=== PATIENT | female | born 1995 | race Caucasian/White ===

== ENCOUNTER 2018-07-29 11:09 | Emergency (ER) | payer OTHER ==
[2018-07-29] MEDS ORDERED: KETOROLAC TROMETHAMINE 60 MG/2 ML SDV IM ONE (12:14)
[2018-07-29] MEDS ORDERED: ACETAMINOPHEN 325 MG TABLET PO ONE (12:14)
--- NOTE | 2018-07-29 12:21 | ER Document Report ---
Addendum entered and electronically signed by TRISTIAN CARDOZO PA-C 07/29/18 13:23: Discharge - Discharge Clinical Impression: Neck pain, acute Condition: Good Disposition: HOME, SELF-CARE Additional Instructions: You were seen in the emergency department for acute neck pain. X-ray did not show any evidence of dislocation or pathologic fracture. This is all very reassuring and it is most likely acute muscle strain which is causing inflammation on the spinal nerve roots giving you these symptoms. We gave you a shot of Toradol here in the emergency department which will help with the inflammation. At about 8:00 tonight you can start taking Motrin 600 mg every 6 hours with food or milk to help with the inflammation. Please note, it will take 24 to 36 hours for the anti-inflammatory properties of Motrin to start working. You can take Tylenol 1000 mill grams every 6 hours as needed for pain. I have also given you a prescription for Flexeril which is a muscle relaxer. If you choose to take it this can help loosen up the muscles. If you start to develop difficulty breathing i.e. you feel the sensation that you are unable to breathe, you develop paralysis or acute numbness in your left arm, you develop u rinary retention, numbness in your sit bones, or you have any other concerning symptoms please immediately return to the emergency department. Please follow- up with your primary doctor in the next 48 to 72 hours if your symptoms do not improve. Forms: Return to Work Referrals: ZOEY GARCIA FNP-C [Primary Care Provider] - Follow up as needed Original Note: HPI - HPI Patient complains to provider of: neck pain Time Seen by Provider: 07/29/18 12:04 Pain Level: 5 Context: 22-year-old healthy female presents emergency department chief complaint of left-sided neck pain. She says she was getting out of bed this morning, was talking on the phone, was reaching up to stretch, lean back and turned all at the same time and felt a pop. She had immediate pain and she is favoring her left side by leaning that way. She has very limited range of motion and cannot turn past midline to the right, can only turn to about 60 degrees to the left, cannot touch chin to chest, and cannot look up very far. She states that she has a burning sensation that goes up her neck and down her back into her shoulder. She does not have any numbness or tingling in her left arm, does not have urinary retention, does not have any respiratory distress or hypoventilation, no bowel incontinence, no fevers, no saddle paresthesia. She did go to her primary care provider's office who said they could offer her an x- ray but if she needed something like an MRI they would not be able to provide that and recommend that she go to the emergency department. She did not want to take any chances so she came here. - REPRODUCTIVE Reproductive: DENIES: : Past Medical History - Social History Smoking Status: Never Smoker Family History: None Vertical Provider Document - CONSTITUTIONAL Notes: PHYSICAL EXAMINATION: Reviewed vital signs and charting by RN GENERAL: Alert, interacts well. No acute distress. HEAD: Normocephalic, atraumatic. EYES: Pupils equal, round, and reactive to light. Extraocular movements intact. NECK: Very limited range of motion. Cannot turn to the left past midline and very cautious with movements, she is self splinting with her head tilted to the left. Hard to delineate tenderness on palpation but she was complaining of tenderness when palpating midline, did not reproduce any radiculopathy. Supple. Trachea midline. LUNGS: Clear to auscultation bilaterally, no wheezes, rales, or rhonchi. No respiratory distress. HEART: Regular rate and rhythm. No murmur EXTREMITIES: Moves all 4 extremities spontaneously. No edema, No cyanosis. Strength 5/5 bilateral upper extremities, strength 5/5 with metal template maker PSYCH: Normal affect, normal mood. SKIN: Warm, dry, normal turgor. No rashes or lesions noted. - INFECTION CONTROL TRAVEL OUTSIDE OF THE [place] IN LAST 30 DAYS: No Course - Re-evaluation Re-evalutation: 07/29/18 12:18 Well-appearing. To delineate her tenderness to palpation so I ordered a x-ray of the C-spine to ensure there is no acute dislocation or anything abnormal. I have given her Toradol 30 mg IM 1 time with some dede crackers, Tylenol, and will place a Lidoderm patch. No red flags concerning for spinous injury. 07/29/18 13:20 X-ray of C-spine negative for any obvious dislocation or pathologic fracture. At this time there is no red flags and patient can follow-up with her primary doctor. She is stable for discharge. Strict return precautions given. Discharge - Discharge Clinical Impression: Neck pain, acute Condition: Good Disposition: HOME, SELF-CARE Additional Instructions: You were seen in the emergency department for acute neck pain. X-ray did not show any evidence of dislocation or pathologic fracture. This is all very reassuring and it is most likely acute muscle strain which is causing inflammation on the spinal nerve roots giving you these symptoms. We gave you a shot of Toradol here in the emergency department which will help with the inflammation. At about 8:00 tonight you can start taking Motrin 600 mg every 6 hours with food or milk to help with the inflammation. Please note, it will take 24 to 36 hours for the anti-inflammatory properties of Motrin to start working. You can take Tylenol 1000 mill grams every 6 hours as needed for pain. I have also given you a prescription for Flexeril which is a muscle relaxer. If you choose to take it this can help loosen up the muscles. If you start to develop difficulty breathing i.e. you feel the sensation that you are unable to breathe, you develop paralysis or acute numbness in your left arm, you develop urinary retention, numbness in your sit bones, or you have any other concerning symptoms please immediately return to the emergency department. Please follow- up with your primary doctor in the next 48 to 72 hours if your symptoms do not improve.
--- NOTE | 2018-07-29 13:03 | RADIOLOGY REPORT (SQ) ---
"EXAM DESCRIPTION: CERV SP 3 VIEW OR LESS COMPLETED DATE/TIME: 07/29/2018 12:50 pm REASON FOR STUDY: midline pain no trauma COMPARISON: None. NUMBER OF VIEWS: Three views. TECHNIQUE: AP, lateral and odontoid radiographic images acquired of the cervical spine. LIMITATIONS: None. FINDINGS: MINERALIZATION: Normal. ALIGNMENT: Anatomic. VERTEBRAE: Vertebral bodies of normal height. DISCS: No significant disc space narrowing. No large osteophytes. HARDWARE: None in the spine. SOFT TISSUES: No masses or calcifications. Lung apices clear. OTHER: No other significant finding. IMPRESSION: NO SIGNIFICANT RADIOGRAPHIC FINDING IN THE CERVICAL SPINE. TECHNICAL DOCUMENTATION: JOB ID: [id number] [employer] | [employer]- All Rights Reserved Reading location - IP/workstation name: [email or web address]"
[2018-07-29 13:29] VITALS: BP 140/88
== END 2018-07-29 13:29 | disposition home or self-care (01) ==
LOC: ER 11:09
DX: M54.2 Cervicalgia (principal)
CPT/HCPCS: 99283; 96372; 72040; J1885

== ENCOUNTER → 2020-03-04 | Outpatient (CLI) | payer OTHER ==
--- NOTE | 2020-03-04 09:45 | ER [facility] ASSESSMENT REPORT ---
Intake - In the Last 14 days Have you traveled outside [place]?: Yes --City/State: [place] Have you been in close contact with someone CONFIRMED: No Worked in Healthcare?: No - Symptoms Subjective Fever([place] feverish): No Chills: No Muscule Aches: Yes Runny Nose: Yes Sore Throat: Yes Cough (New or worsening chronic cough): Yes Shortness of breath: No Nausea or Vomiting: Yes Headache: Yes Abdominal Pain: No Diarrhea(3 or more loose stools in last 24 hours): No - Do you have any of the following Chronic lung disease: Asthma or emphysema or COPD: No Cystic Fibrosis: No Diabetes: No High Blood Pressure: No Cardiovascular Disease: No Chronic Kidney Disease: No Chronic Liver Disease: No Chronic blood disorder like Sickle Cell Disease: No Weak immune system due to disease or medication: No Neurologic condition that limits movement: No Developmental delay - Moderate to Severe: No Recent (within past 2 weeks) or current : No Morbid Obesity (>100 pounds over ideal weight): No - Objective Temperature: 98.3 F Pulse Rate: 77 Respiratory Rate: 18 Blood Pressure: 119/78 O2 Sat by Pulse Oximetry: 100 Objective: Given above, testing performed: If Testing Performed: Test Specimen Type Sent to General - General Information source: Patient Notes: Patient presents to the [facility] for screening for the coronavirus. Patient reports having body aches, runny nose sore throat cough with headache and nausea. Patient reports having the symptoms for the past day - Related Data Allergies/Adverse Reactions: No Known Allergies Allergy (Unverified 07/29/18 11:11) Past Medical History - General Information source: Patient - Social History Smoking Status: Never Smoker Family History: None - Medical History Medical History: Negative Renal/ Medical History: Denies: Hx Peritoneal Dialysis Surgical Hx: Negative Physical Exam - Notes Notes: The patient was evaluated during the global Covid 19 pandemic, and that diagnosis was suspected/considered upon their initial presentation. Their evaluation and testing was consistent with current guidelines for patients who present with complaints or symptoms that may be related to Covid 19. Full physical exam could not be performed due to covid 19 isolation protocols. Constitutional: Nontoxic appearance, no acute distress Eyes: Nonicteric, sclera clear ENT posterior pharynx clear without exudate: Cardiovascular: Heart rate and rhythm regular Respiratory: Breath sounds clear bilaterally nonlabored breathing, no use of accessory muscles, no tachypnea Gastrointestinal: Abdomen not distended Muculoskeletal: Moves all extremities well Skin: Normal color Neuro: Awake alert oriented, normal speech Psych: Normal mood and affect Diagnostic Results Laboratory Results: Patient presents with upper respiratory symptoms worrisome for possible Covid 19. Patient does not have emergency worrying symptoms such as difficulty breathing, shortness of breath, chest pain, pressure, confusion or cyanosis. Patient appears suitable for discharge as they are not of an advanced age, do not have any chronic medical conditions such as diabetes, CAD, immune deficiency, chronic lung disease or chronic kidney disease. Patient's vital signs are stable and patient is nontoxic in appearance. Good return precautions have been discussed with patient, patient verbalized understanding and is ag reeable with discharge plan of care at this time. Patient Education/Counseling Counseling/Education: Patient was provided with discharge information including: As a person under investigation for Covid 19, the [place] department of Health and Human Services, division of public health advises you to adhere to the following guidance until your test results are reported to you. If your test result is positive, you will receive additional information from your provider and your local health department at that time. Remain at home until you are cleared by the health provider or public health authorities. Keep a log of visitors to your home, notify any visitors to your home of your isolation status. If you plan to move to a new address or leave the county, notify the local health department in your County. Call your doctor or seek care if you have an urgent medical need. Before seeking medical care, call ahead to get instructions from the provider before arriving at the medical office clinic or hospital. Notify them that you are being tested for the virus that causes Covid 19 so that arrangements can be made, as necessary, to prevent transmission to others in the healthcare setting. Next, notify the local health department in your county. If a medical emergency arises and you need to call 911, inform the first responders that you are being tested for the virus that causes Covid 19. Next, notify the local health department in your county. [facility] Discharge - Discharge Clinical Impression: Encounter for screening for COVID-19 Condition: Stable Disposition: Home; Selfcare
[2020-03-04 09:46] VITALS: BP 119/78
[2020-03-04 10:50] LABS: A TYPE INFLUENZA AG NEGATIVE (NEGATIVE); B INFLUENZA AG NEGATIVE (NEGATIVE)
== END ==
LOC: RDC 09:18
PROVIDERS: ATTEND Nurse Practitioner Family
DX: Z20.822 Contact with and (suspected) exposure to COVID-19 (principal); R05 Cough; J02.9 Acute pharyngitis, unspecified; R09.89 Other specified symptoms and signs involving the circulatory and respiratory systems; M79.10 Myalgia, unspecified site; R11.0 Nausea; R51.9 Headache, unspecified
CPT/HCPCS: 87070; 87880; 87635; 87804; 99202; 99211; C9803